=== PATIENT | male | born 1930 | race African-American/Black ===

== ENCOUNTER 2017-01-09 10:17 | Emergency (ER) | payer OTHER ==
[~2017-01-09] VITALS: Ht 182.9 cm; Wt 95.3 kg
[2017-01-09] MEDS ORDERED: DYAZIDE 37.5-21 EACH PO (10:36)
[2017-01-09] MEDS ORDERED: ALLOPURINOL 30300 M2 PO (10:36)
[2017-01-09] MEDS ORDERED: HYDREA 500 MG500 M1 PO (10:37)
[2017-01-09] MEDS ORDERED: FLOMAX0.4 MG PO (10:37)
[2017-01-09] MEDS ORDERED: FINASTERIDE5 MG PO (10:38)
[2017-01-09] MEDS ORDERED: MOBIC15 MG PO (11:29)
[2017-01-09 11:58] VITALS: BP 113/62
== END 2017-01-09 12:08 | disposition home or self-care (01) ==
LOC: ER 10:17
DX: R51 Headache (principal); I10 Essential (primary) hypertension; M10.9 Gout, unspecified; F10.99 Alcohol use, unspecified with unspecified alcohol-induced disorder

== ENCOUNTER 2018-01-18 13:01 | Emergency (ER) | payer OTHER ==
[~2018-01-18] VITALS: Ht 190.5 cm; Wt 89.8 kg
[~2018-01-18 13:01] MED LIST: ALLOPURINOL 30300 M2 PO; DYAZIDE 37.5-21 EACH PO; FINASTERIDE5 MG PO; FLOMAX0.4 MG PO; HYDREA 500 MG500 M1 PO; MOBIC15 MG PO
[2018-01-18] MEDS ORDERED: BUTALB-APAP-CA1 EACH PO (15:02)
[2018-01-18 15:18] VITALS: BP 117/61
== END 2018-01-18 15:20 | disposition home or self-care (01) ==
LOC: ER 13:01
DX: G43.909 Migraine, unspecified, not intractable, without status migrainosus (principal); I10 Essential (primary) hypertension; M10.9 Gout, unspecified; Z86.69 Personal history of other diseases of the nervous system and sense organs

== ENCOUNTER 2018-10-03 20:43 | Emergency (ER) | payer OTHER ==
[~2018-10-03] VITALS: Ht 182.9 cm; Wt 89.8 kg
[~2018-10-03 20:43] MED LIST changes: +AGRYLIN1 MG PO; +ASPIR 8181 MG PO; +BUTALB-APAP-CA1 EACH PO; +VITAMIN B COMP1 EACH PO; +VITAMIN B-12500 MCG PO; +VITAMIN D1000 UNI1 PO; +VITAMIN D3400 UNIT PO
[2018-10-03 22:11] LABS: HEMATOCRIT 23.8 % (42.0-52.0); WBC 9.4 thou/uL (4.0-11.0)
[2018-10-03 22:13] LABS: HEMOGLOBIN 8.2 gm/dL (14.0-18.0); MCH 29.4 pg (26.0-34.0); MCHC 34.3 g/dL (28.0-37.0); MCV 85.9 fL (80.0-100.0); RBC 2.78 mil/uL (4.50-6.00)
[2018-10-03 23:10] VITALS: BP 129/74
== END 2018-10-03 23:11 | disposition home or self-care (01) ==
LOC: ER 20:43
PROVIDERS: Physician Assistant
DX: S80.12XA Contusion of left lower leg, initial encounter (principal); D64.9 Anemia, unspecified; D47.3 Essential (hemorrhagic) thrombocythemia; I10 Essential (primary) hypertension; M10.9 Gout, unspecified; G43.909 Migraine, unspecified, not intractable, without status migrainosus; W00.0XXA Fall on same level due to ice and snow, initial encounter; Y92.89 Other specified places as the place of occurrence of the external cause; Y93.89 Activity, other specified; Y99.8 Other external cause status

== ENCOUNTER → 2018-11-04 | Outpatient (CLI) | payer OTHER ==
[~2018-11-04] MED LIST changes: +HYDREA500 MG PO
[2018-11-04 10:00] VITALS: BP 108/48; BP 111/51
[2018-11-04 12:31] VITALS: BP 111/51; BP 114/49; BP 117/51
--- NOTE | 2018-11-04 15:10 | NUR ---
IN FOR BLOOD TRANSFUSION FOR HGB 6.9. PREMEDS GIVEN AND TRANFUSED 2 UNITS LPPC'S AND TOLERATED WELL WITHOUT INCIDENT. POST VITAL SIGNS GOOD. WITH PATIENT THROUGHOUT TRANSFUSION. DISMISSED AMBULATORY TO HOME IN STABLE CONDITION.
== END ==
LOC: OPONC 00:34
DX: D64.9 Anemia, unspecified (principal); D47.3 Essential (hemorrhagic) thrombocythemia
CPT/HCPCS: 91030

== ENCOUNTER 2019-02-04 13:06 | Inpatient (IN) | payer OTHER ==
[~2019-02-04] VITALS: Ht 182.9 cm; Wt 162.5 kg
[2019-02-04 13:07] VITALS: BP 108/43
[2019-02-04 14:31] LABS: ANION GAP 13 mmol/L (7-16); BUN 71 mg/dL (7-18); CALCIUM 9.7 mg/dL (8.5-10.1); CHLORIDE 110 mmol/L (98-107); CO2 22 mmol/L (21-32); CREATININE 1.2 mg/dL (0.7-1.3); GLUCOSE 120 mg/dL (74-106); POTASSIUM 3.9 mmol/L (3.5-5.1); SODIUM 145 mmol/L (136-145)
[2019-02-04 14:40] LABS: TROPONIN-I <0.06 ng/mL (<0.06)
[2019-02-04 15:00] LABS: MCH 33.7 pg (26.0-34.0); MCHC 32.4 g/dL (28.0-37.0); MCV 104.3 fL (80.0-100.0); RBC 1.63 mil/uL (4.50-6.00); RDW 37.3 % (10.5-14.5); WBC 8.4 thou/uL (4.0-11.0)
[2019-02-04 15:04] LABS: HEMOGLOBIN 5.5 gm/dL (14.0-18.0)
[2019-02-04 15:05] LABS: PLATELET COUNT 1337 thou/uL (150-400)
[2019-02-04 15:36] LABS: ABSOLUTE NEUTROPHILS 7.1 thou/uL (1.4-8.2); ANISOCYTOSIS 3+; MACROCYTES 1+; NUCLEATED RBCS 1 /100WBC
[2019-02-04 15:37] LABS: HYPOCHROMASIA 2+; SCHISTOCYTES FEW
[2019-02-04 15:38] LABS: LARGE PLATELETS OCCASIONAL; POIKILOCYTOSIS 1+
[2019-02-04 15:52] LABS: URINE BILIRUBIN NEGATIVE (Negative); URINE BLOOD NEGATIVE (Negative); URINE CLARITY CLEAR; URINE COLOR YELLOW; URINE GLUCOSE-RANDOM* NEGATIVE (Negative); URINE KETONES NEGATIVE (Negative); URINE LEUKOCYTES-REFLEX TRACE (Negative); URINE NITRITE-REFLEX NEGATIVE (Negative); URINE PROTEIN (DIPSTICK) NEGATIVE (Negative); URINE UROBILINOGEN 0.2 E.U./dl (0.2-1.0)
[2019-02-04 15:56] LABS: ALBUMIN 3.8 g/dL (3.4-5.0); DIRECT BILIRUBIN 0.2 mg/dL (<0.1-0.3); TOTAL BILIRUBIN 0.5 mg/dL (<0.1-1.0); TOTAL PROTEIN 6.3 g/dL (6.4-8.2)
[2019-02-04 16:00] LABS: APTT 23.8 Seconds (24.5-32.8); INR 1.1; PROTIME 11.4 Seconds (9.3-11.4)
--- NOTE | 2019-02-04 16:25 | EKG ---
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 Market Intelligence: rubi : 1930 Requested By: Yessenia Root Order Number: [id number] MD: Anthony Hernandez Measurements Intervals [place] Rate: 82 P: 42 AL: 224 QRS: 46 QRSD: 148 T: 223 QT: 424 QTc: 496 Interpretive Statements Sinus rhythm Atrial premature complex Prolonged AL interval Left bundle branch block No previous ECG available for comparison Electronically Signed On 02-04-2019 16:25:27 CDT by Anthony Hernandez [email or web address] ��������������������������������������������� <ELECTRONICALLY SIGNED> ���������������������������������������� By: Anthony Hernandez MD ��������������������������������������������� 02/04/19 1625 1351 135 Anthony Hernandez MD /OLMAN
[2019-02-04 16:35] VITALS: BP 108/51
[2019-02-04] MEDS ORDERED: FOLIC ACID1 MG PO (16:36)
[2019-02-04 16:44] VITALS: BP 114/49
[2019-02-04 19:20] LABS: % SATURATION 67 % (20-39); IRON 117 ug/dL (65-175); TIBC 175 ug/dL (250-450)
--- NOTE | 2019-02-04 19:36 | NUR ---
PT ARRIVED TO FLOOR AROUND 1730 IN [place] CONDITION.ADMISSION HX AND CAREPLAN COMPLETED.PT SIGNED CONSENT FOR EGD AND BLOOD TRANSFUSION.DINNER GIVEN PER 'S ORDER.REPORT OFF TO HALI RN.
[2019-02-04 19:46] LABS: TSH 2.888 uIU/mL (0.358-3.740)
[2019-02-04 20:16] LABS: FOLIC ACID 60.4 ng/mL (8.6-58.9)
[2019-02-04 20:41] VITALS: BP 107/51
[2019-02-04 21:41] VITALS: BP 114/53; BP 119/54
[2019-02-04 23:59] VITALS: BP 119/54
[2019-02-05] VITALS (9 sets, daily range): BP systolic 108–124; BP diastolic 48–58
[2019-02-05 05:39] LABS: MCH 32.6 pg (26.0-34.0); RBC 1.88 mil/uL (4.50-6.00); WBC 6.9 thou/uL (4.0-11.0)
[2019-02-05 05:44] LABS: MCHC 33.9 g/dL (28.0-37.0); RDW 32.7 % (10.5-14.5)
[2019-02-05 05:50] LABS: HEMOGLOBIN 6.1 gm/dL (14.0-18.0)
[2019-02-05 05:51] LABS: HEMATOCRIT 18.1 % (42.0-52.0); MCV 96.1 fL (80.0-100.0); PLATELET COUNT 979 thou/uL (150-400)
[2019-02-05 05:53] LABS: CALCIUM 8.4 mg/dL (8.5-10.1); CREATININE 1.1 mg/dL (0.7-1.3); POTASSIUM 3.9 mmol/L (3.5-5.1)
--- NOTE | 2019-02-05 07:48 | NUR ---
ASSUMED PT CARE AT 1900. VSS. PT A&OX4. PT CAME IN WITH HGB OF 5.5 TO RECEIVE 2 UNITS OF PRBC; BOTH UNITS GIVEN ON MY SHIFT. H&H RECHECKED THIS AM. HGB WAS 6.1. LILIANA NOTIFIED. THERE WAS NO ACTIVE BLEEDING AT THIS TIME PT HAD NOT HAD A BM YET. NEW ORDERS FOR 2 MORE UNITS GIVEN TO RECHECK HGB 1 HOUR AFTER TRANSFUSION IS OVER. PT HAD A FORMED BLOODY BM AFTER BLOOD ORDERS WERE ENTERED. BLOOD BANK CALLED AROUND 0700 AM THIS AM, THAT THE BLOOD IS READY FOR TRANSFUSION. PT CARE TRANSFERED TO ANOTHER NURSE. PT APPEARS STABLE AT THIS TIME, HE SAYS HE IS FEELING SOMEWHAT BETTER, WILL CONTINUE TO MONITOR PER POC.
[2019-02-05 08:04] LABS: ABSOLUTE NEUTROPHILS 5.3 thou/uL (1.4-8.2)
[2019-02-05 08:06] LABS: ANISOCYTOSIS 3+
[2019-02-05 08:07] LABS: OVALOCYTES FEW
[2019-02-05 08:13] LABS: POLYCHROMASIA OCCASIONAL
[2019-02-05 08:14] LABS: TEARDROPS OCCASIONAL
[2019-02-05 13:43] LABS: HEMATOCRIT 23.8 % (42.0-52.0)
[2019-02-05 13:45] LABS: HEMOGLOBIN 8.4 gm/dL (14.0-18.0)
--- NOTE | 2019-02-05 18:37 | NUR ---
ASSUMED CARE OF PT AT SHIFT CHANGE. ASSESSMENTS CHARTED. MEDS GIVEN PER NOV. PT ALERT AND ORIENTED, VSS, HGB, 2 UNITS BLOOD TRANSFUSED PER ORDERS. PT HAD EGD PROCUDURE TODAY-- REFER TO PROCEDURE NOTE. FAMILY AT BEDSIDE THROUGHOUT SHIFT. PT UP WITH ROBERTA FRANCO. PROTONIX GTT CONTINUES. PT CALLS APPROPRIATELY WITH NEEDS. DENIES CONCERNS AT THIS TIME. CONTINUING TO MONITOR.
[2019-02-06 04:00] VITALS: BP 122/51
--- NOTE | 2019-02-06 04:33 | NUR ---
ASSUMED PT CARE AT 1900. VSS. PT A&0 TO SELF, TIME, AND SITUATION. PT SLEPT FOR MOST OF THE NIGHT, PROTONIX GTT STILL GOING WELL NS. NO COMPLAINTS OF PAIN OR DISTRESS, PT STABLE, WILL CONTINUE TO MONITOR PER POC.
[2019-02-06 05:17] LABS: HEMOGLOBIN 7.5 gm/dL (14.0-18.0); MCH 32.2 pg (26.0-34.0); MCHC 34.2 g/dL (28.0-37.0); MCV 94.2 fL (80.0-100.0); RBC 2.33 mil/uL (4.50-6.00); WBC 6.6 thou/uL (4.0-11.0)
[2019-02-06 05:23] LABS: CREATININE 1.1 mg/dL (0.7-1.3); POTASSIUM 3.6 mmol/L (3.5-5.1)
--- NOTE | 2019-02-06 07:25 | P ---
[facility] [address] [place] [address] PROCEDURE REPORT Name: SHAHNAZ FERRARO Addi Room #: 212-P [facility] IN M.R.#: [id number] Admission: 02/04/19 ������������������ Attend Phys: Yuriy Celaya MD Discharge: ������������������ Date of : 32 Report #: [id number] THIS REPORT FOR: //name// CC: Yuriy Tee MD DATE OF SERVICE: 02/05/2019 PROCEDURE: Diagnostic EGD. The patient of Dr. Radha Tee and Dr. Yuriy Celaya. INDICATION FOR PROCEDURE: This patient has had melena. He had a hemoglobin drop to approximately 5.5 and presented to the ER yesterday for evaluation. He received 2 units of packed cells overnight and this morning, his hemoglobin was only 6.1. He has received 2 more units of packed cells during the day today and I do not have the followup hemoglobin available to me yet. His vital signs are stable and he has had no further melena for many hours. His BUN has dropped from 71 to 53. His appetite has been poor. I suspect he has been losing weight. His thinks that he is depressed. Informed consent for this procedure was obtained prior to the administration of any medication. The risks of the procedure, which include but are not limited to the following, bleeding, perforation, infection, complications of sedation and the possibility I could miss something were explained to the patient and he has indicated his consent to proceed with the endoscopy. Anesthesia kindly provided deep sedation with propofol for this patient. I believe they also gave ketamine. DESCRIPTION OF PROCEDURE: The Olympus upper videoscope was introduced through the upper esophageal sphincter and advanced to the stomach and retroflex view was obtained. I could see an adherent clot to what appeared to be a 3 cm long Rocio-Pa tear that was nonbleeding. The clot is black in color and stuck fast. There is a healing ulceration linearly extending from the blood clot up to the Z-line. This is about 3 cm long. I did not try any longer to dislodge this clot. It appears to be firmly in place at this time and doing its job. So the scope was advanced all the way down to the third portion of the duodenum and findings were noted on withdrawal of the scope. The duodenal mucosa appeared normal throughout its entirety. Pylorus: Normal mucosa. Antrum: Normal mucosa. Body: Normal mucosa. On retroflex view of the cardia and fundus, there is a 2-3 cm submucosal mass across from the Rocio-Pa tear in the proximal stomach. It is irregular in appearance, but will require further workup with endoscopic ultrasound and possibly CT scans. As it is submucosal in [address] [address] PROCEDURE REPORT Name: SHAHNAZ FERRARO Room #: 212-P [facility] IN ..#: [id number] Admission: 02/04/19 ������������������ Attend Phys: Yuriy Celaya MD Discharge: ������������������ Date of : 32 Report #: [id number] nature, mucosa biopsies would not be diagnostic for this lesion. The scope was withdrawn into the esophagus. The Z-line is appropriately located at the top of the gastric folds and the Rocio-Pa tear extends up to the Z-line. The esophageal mucosa itself appears normal. The scope was withdrawn. The patient went to the recovery area in stable condition. He tolerated the procedure well. IMPRESSION: 1. A 3 cm long Rocio-Pa tear with adherent clot, nonbleeding white based. 2. 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 The duodenum appeared normal as did the distal stomach. My recommendations were to arrange for the patient to continue on Protonix 40 mg and I would make sure he gets at least 40 mg a day, if not b.i.d. for a while. He will need to be scheduled for an outpatient endoscopic ultrasound either at or at [facility] or [facility] to evaluate this proximal submucosal gastric lesion. I do not believe that he has ever had a colonoscopy done and that should be done as an outpatient for screening purposes if the patient is agreeable, but I do not think the melena, probably arose from the Rocio-Pa tear. Thank you very much for allowing me to participate in his care, Dr. Celaya and Dr. Tee. ��������������������������������������������� <ELECTRONICALLY SIGNED> ���������������������������������������� By: Dana Trinidad DO ��������������������������������������������� 02/06/19 0725 1345 0432 Dana Trinidad DO /nt
--- NOTE | 2019-02-06 09:26 | EKG ---
[address] [place] [place] [address] ELECTROCARDIOGRAM REPORT Name: SHAHNAZ FERRARO Room #: 212-P ADM IN M.R.#: [id number] ������������������ Admission: 02/04/19 ������������������ Attend Phys: Yuriy Celaya MD Discharge: ������������������ Date of : 32 Report #: [id number] ����������������������������������������������������������������� [id number] THIS REPORT FOR: //name// [facility] Test Date: 2019-02-05 Test Time: 12:55:57 Pat Name: SHAHNAZ FERRARO Department: Room: 212 P Gender: M Disability Services Coordinator: LARRY : 1930 Requested By: Dana Trinidad Order Number: [id number] MD: Renan Sutton Measurements Intervals [place] Rate: 66 P: SD: QRS: 12 QRSD: 154 T: 161 QT: 435 QTc: 456 Interpretive Statements Sinus rhythm with atrial premature complexes Left bundle branch block Compared to ECG 02/04/2019 13:51:52 No significant change was found Electronically Signed On 02-06-2019 9:26:37 CDT by Renan Sutton [email or web address] ��������������������������������������������� <ELECTRONICALLY SIGNED> ���������������������������������������� By: Renan Sutton MD, [facility] ��������������������������������������������� 02/06/19 0926 1255 1255 Renan Sutton MD, FAC /EPI
[2019-02-06 09:54] VITALS: BP 122/51
--- NOTE | 2019-02-06 14:56 | NUR ---
Case opened to follow for dc planning. Pt down for testing at this time. Gear Machine Operator visited with his and gson at bedside. They indicate that the pt is normally indep with gait and adl's. He drives; she does not. No hh or dme history. He was using his wifes cane the last few days. Pt being treated for a GI bleed. Cm role introduced. Will ask for therapy evals due to weakness and change in status.
--- NOTE | 2019-02-06 15:38 | NUR ---
ASSUMED CARE OF PT AT SHIFT CHANGE. ASSESSMENTS CHARTED. MEDS GIVEN PER NOV. PT ALERT AND ORIENTED, FORGETFUL AT TIMES, VSS, DENIES PAIN, O2 SATS WNL ON ROOM AIR, NO S/SX OF CARD OR RESP DISTRESS NOTED. FAMILY AT BEDSIDE THROUGHOUT SHIFT. PT CALLS APPROPRIATELY WITH NEEDS, UP SBA WITH WALKER, TOLERATES WELL. PT/OT EVAL AND TREATMENT ORDERS IN PER DR. DAO. PROTONIX GTT DC'D PER GI. PT DENIES CONCERNS AT THIS TIME. WILL CONTINUE TO MONITOR AND FOLLOW POC.
[2019-02-06 20:02] VITALS: BP 121/51
[2019-02-07 04:57] VITALS: BP 120/49
[2019-02-07 05:29] LABS: HEMATOCRIT 23.8 % (42.0-52.0); HEMOGLOBIN 8.2 gm/dL (14.0-18.0); MCH 32.6 pg (26.0-34.0); MCHC 34.3 g/dL (28.0-37.0); MCV 95.1 fL (80.0-100.0); RBC 2.51 mil/uL (4.50-6.00); RDW 26.3 % (10.5-14.5); WBC 9.4 thou/uL (4.0-11.0)
[2019-02-07 05:39] LABS: POTASSIUM 3.9 mmol/L (3.5-5.1)
--- NOTE | 2019-02-07 05:39 | NUR ---
ASSUMED PT CARE AT 1900 WITH NO SIGN OF DISTRESS NOTED. FAMILY AT BEDSIDE. NO PT IS ALERT AND ORIENTED. ASSESSMENT CHARTED AND COMPLETED. RN TO MONITOR H&H. SCHEDULED MEDS ADMINISTERED TO PT. NO BLEEDING NOTITICED. PT IS STABLE. VITAL SIGNS STABLE. CONTINUE NURSING POC. DENIES ANY NEEDS AT THIS TIME.
[2019-02-07 08:07] VITALS: BP 120/62
--- NOTE | 2019-02-07 11:02 | NUR ---
ASSUMED CARE AT SHIFT CHANGE, ALERT AND ORIENTED X4. DENIES ANY CP OR DISCOMFORT. ASSESSMENT DOCUMENTED.AND WILL CONTINUE POC.
[2019-02-07 11:27] VITALS: BP 140/56
--- NOTE | 2019-02-07 12:19 | NUR ---
PT ARRIVED TO ROOM 421 FROM CCU IN STABLE CONDITION VIA WHEELCHAIR AT 1100. VSS. EVANS AT BEDSIDE. ASSESSMENT COMPLETED. A&O,X4. DENIES PAIN. CONCERNED ABOUT RESTARTING HOME MEDICATION. PHYSICIAN NOTIFIED. WILL CONTINUE TO MONITOR.
[2019-02-07 19:30] VITALS: BP 122/57
[2019-02-08 03:30] VITALS: BP 122/57; BP 128/59
[2019-02-08 05:09] LABS: MCV 95.3 fL (80.0-100.0); WBC 7.8 thou/uL (4.0-11.0)
[2019-02-08 05:11] LABS: HEMATOCRIT 23.3 % (42.0-52.0); MCH 32.6 pg (26.0-34.0); MCHC 34.2 g/dL (28.0-37.0); RBC 2.45 mil/uL (4.50-6.00)
--- NOTE | 2019-02-08 05:28 | NUR ---
LAB CALLED A CRITICAL PLATELET COUNT OF 923 AT 0513. THIS NURSE NOTIFIED RUEL REYES AND RECEIVED NO ORDERS. OF 02/07 PLT COUNT WAS 1059. WILL MONITOR.
[2019-02-08 09:15] VITALS: BP 123/57
[2019-02-08] MEDS ORDERED: PROTONIX40 M1 PO (10:19)
[2019-02-08 11:24] VITALS: BP 123/57
--- NOTE | 2019-02-08 13:32 | NUR ---
ASSUMED CARE OF PT AT 0700. ASSESSMENT CHARTED. A&O,X4. DENIES PAIN. ROOM AIR. GOOD URINE OUTPUT VIA URINAL. GRANDSON AND FAMILY AT BEDSIDE. PT ABLE TO WALK AROUND IN HALLWAYS. STEADY GAIT, NO WEAKNESS NOTED. NEW DISCHARGE ORDERS. IV X2 REMOVED, NO ACTIVE BLEEDING. PT DRESSED IN PERSONAL CLOTHING. BELONGINGS COLLECTED AND SENT WITH PT. D/C INFORMATION AND NEW SCRIPTS GIVEN TO PT AND FAMILY AT BEDSIDE. STATE NO QUESTIONS OR CONCERNS. PT LEFT VIA WHEELCHAIR ESCORT WITH FAMILY AND BELONGINGS AT 12:18.
== END 2019-02-08 12:21 | disposition home or self-care (01) | DRG 369 ==
LOC: ER 13:06 → 2N 15:41 → EROBS 15:41 → 2N 17:19 → 4E 02-07 11:34
PROVIDERS: Emergency Medicine; Hospitalist; Internal Medicine; Internal Medicine Gastroenterology; Nurse Practitioner; ADMIT Hospitalist
PROC: 30233N1 Transfusion of Nonautologous Red Blood Cells into Peripheral Vein, Percutaneous Approach (ICD-10-PCS; principal; 2019-02-04)
PROC: 0DJ08ZZ Inspection of Upper Intestinal Tract, Via Natural or Artificial Opening Endoscopic (ICD-10-PCS; 2019-02-05)
DX: K22.6 Gastro-esophageal laceration-hemorrhage syndrome (principal); D62 Acute posthemorrhagic anemia; I10 Essential (primary) hypertension; M10.9 Gout, unspecified; G43.909 Migraine, unspecified, not intractable, without status migrainosus; K59.09 Other constipation; E86.0 Dehydration; D47.3 Essential (hemorrhagic) thrombocythemia; M19.90 Unspecified osteoarthritis, unspecified site; K31.9 Disease of stomach and duodenum, unspecified; N40.0 Benign prostatic hyperplasia without lower urinary tract symptoms; Z79.899 Other long term (current) drug therapy; Z79.1 Long term (current) use of non-steroidal anti-inflammatories (NSAID)
CPT/HCPCS: 10081; 10183; 62110; 62900; 70005

== ENCOUNTER → 2019-06-05 | Outpatient (CLI) | payer OTHER ==
[~2019-06-05] VITALS: Ht 182.9 cm; Wt 88.5 kg
[~2019-06-05] MED LIST changes: +FOLIC ACID1 MG PO; +PROTONIX40 M1 PO
--- NOTE | 2019-06-08 16:06 | PATH ---
[facility] [address] [place] [address] PATHOLOGY RPT PROCEDURE Name: TARA LANIER Addi Room #: REG [facility].#: [id number] Admission: 06/05/19 Date of : 32 Discharge: Report #: [id number] Path Case #: [id number] [facility] Accession Number: [id number] . 01 Material submitted: . cecum - POLYP AT CECUM . 01 Clinical history: . Pre-OP DX: Recheck esophageal tear, screening, Hx of anemia Post-OP DX: Colon polyp . 02 Diagnosis: Polyp, cecum, endoscopic biopsy: - Tubular adenoma. - Negative for high grade dysplasia. . (IUV:mml; 06/08/2019) QLM 06/08/2019 1233 Local . 02 Electronically signed: . Tiffany Laguna MD, Pathologist NPI- [id number] . 01 Gross description: . Received in formalin labeled "Tara Lanier, polyp at cecum," are multiple segments of rosenbaum soft tissue measuring 1.5 x 0.3 x 0.1 cm in aggregate dimensions. The specimen is filtered and entirely submitted in cassette A1. (TSD; 06/05/2019) TOB/TOB 06/05/2019 1622 Local . 02 Pathologist provided ICD-10: D12.0 . 02 CPT . 273293 Specimen Comment: A courtesy copy of this report has been sent to Specimen Comment: [phone], . Specimen Comment: Report sent to / DR MARSHALL Performed at: [address], [place] [id number] MD Shaq López MD Phone: [phone] Performed at: [address] [id number] MD Tiffany Laguna MD Phone: [phone]
--- NOTE | 2019-06-10 10:34 | P ---
[facility] [address] [place] [address] PROCEDURE REPORT Name: SHAHNAZ FERRARO Addi Room #: REG [facility]#: [id number] Admission: 06/05/19 Attend Phys: Eric Nevarez Discharge: Date of : 32 Report #: [id number] THIS REPORT FOR: //name// CC: Eric Tee MD DATE OF SERVICE: 06/05/2019 PROCEDURE PERFORMED: Upper endoscopy. HISTORY OF PRESENT ILLNESS: The patient is an 88-year-old male who was seen for followup in the office on 04/07/2019. He had an upper GI bleed in January of this year and was hospitalized with a hemoglobin of 5.5. He underwent an upper endoscopy by my partner on 02/05/2019 which showed a large Rocio-Pa tear in the distal esophagus with adherent clot. Also, possible submucosal mass in the proximal stomach. A CT scan of the abdomen was performed 02/06/2019, which showed no gastric mass noted or lymphadenopathy, redundant colon was noted. The patient denies any further bleeding. He is on PPI therapy. He denies any dysphagia. Plan is for EGD and colonoscopy today. DESCRIPTION OF PROCEDURE: The risks and benefits of the procedure were explained to the patient, those risks including but not limited to bleeding, perforation, the risk of sedation. He understood these risks and gave informed consent. Sedation was given using propofol per anesthesia. Next, using a standard Olympus upper endoscope, the scope was placed in the patient's mouth and advanced under direct vision through the esophagus, stomach and into the second portion of the duodenum. The larynx was normal in appearance. The esophagus was normal throughout. The GE junction was normal. No evidence of esophagitis. Upon entering the stomach, there appears to be a large hiatal hernia. Also, in the gastric fundus, there is a submucosal mass. This was approximately 2 cm in diameter. Overall, the gastric mucosa was otherwise normal. The pylorus was normal and patent. The duodenal bulb, first and second portion were all normal. The scope was then withdrawn and the procedure terminated. The patient tolerated the procedure well. IMPRESSION: 1. Appears to have a large hiatal hernia. 2. Submucosal mass in the gastric fundus. 3. Previous Rocio-Pa tear is well healed. No evidence of esophagitis or inflammation. No evidence of bleeding. RECOMMENDATIONS: 1. Continue PPI therapy long-term. 2. We will proceed with colonoscopy, next today. 3. We will discuss possible endoscopic ultrasound with the patient for further [address] [address] PROCEDURE REPORT Name: SHAHNAZ FERRARO Room #: REG Shonda Perez#: [id number] Admission: 06/05/19 Attend Phys: Eric Nevarez Discharge: Date of : 32 Report #: [id number] evaluation of submucosal mass in the future. Thank you for allowing me to participate in his care. <ELECTRONICALLY SIGNED> By: Eric Baeza MD 06/10/19 1034 0952 99 Eric Baeza MD /nt
--- NOTE | 2019-06-10 10:34 | P ---
[facility] [address] [place] [address] PROCEDURE REPORT Name: SHAHNAZ FERRARO Room #: REG [facility]#: [id number] Admission: 06/05/19 Attend Phys: Eric Nevarez Discharge: Date of : 32 Report #: [id number] THIS REPORT FOR: //name// CC: Eric Tee MD PROCEDURE PERFORMED: Colonoscopy with biopsies. HISTORY OF PRESENT ILLNESS: The patient is an 88-year-old male with previous history of upper GI bleed from Rocio-Pa tear in January of this year. He has been on PPI therapy since. Denies any further bleeding. Upper endoscopy was just performed today, which shows no evidence of esophagitis or inflammation. Previous Rocio-Pa tear was well healed. Plan is also for colonoscopy today. It has been many years since his last colonoscopy. No family history of colon cancer. DESCRIPTION OF PROCEDURE: The risks and benefits of the procedure were explained to the patient, those risks including but not limited to bleeding, perforation and the risk of sedation. He understood these risks and gave informed consent. Sedation was given using propofol per anesthesia. Next, a digital rectal exam was initially performed, which was normal other than a large smooth prostate. Next, using a standard Olympus colonoscope, the scope was placed in the patient's anus and advanced under direct vision to the cecum. The overall prep was good. In the cecum, there was a 6 mm sessile polyp. This was removed with cold forceps. The ileocecal valve was normal in appearance. Ascending, transverse, descending and sigmoid colon were all normal. The rectal mucosa was normal. On retroflexion, small nonbleeding internal hemorrhoids were noted. The scope was then withdrawn and the procedure terminated. The patient tolerated the procedure well. IMPRESSION: 1. Small cecal polyp. 2. Small internal hemorrhoids. 3. Otherwise, normal colonoscopy. RECOMMENDATIONS: 1. Await biopsy results. 2. No signs of bleeding today. We would continue to monitor hemoglobin and also continue long-term PPI therapy. Thank you for allowing me to participate in his care. <ELECTRONICALLY SIGNED> By: Eric Baeza MD 06/10/19 1034 1018 27 Eric Baeza MD /nt
== END | disposition home or self-care (01) ==
LOC: GI 05-12 09:23
DX: Z12.11 Encounter for screening for malignant neoplasm of colon (principal); D12.0 Benign neoplasm of cecum; K64.8 Other hemorrhoids; K44.9 Diaphragmatic hernia without obstruction or gangrene; K21.9 Gastro-esophageal reflux disease without esophagitis; Z98.890 Other specified postprocedural states; Z79.899 Other long term (current) drug therapy; Z79.82 Long term (current) use of aspirin
CPT/HCPCS: 62110; 62900

== ENCOUNTER 2021-03-13 12:52 | Emergency (ER) | payer OTHER ==
[~2021-03-13] VITALS: Ht 185.4 cm; Wt 81.7 kg
[2021-03-13 13:44] LABS: ABSOLUTE NEUTROPHILS 4.4 thou/uL (1.4-8.2); HEMATOCRIT 24.2 % (42.0-52.0); HEMOGLOBIN 8.4 gm/dL (14.0-18.0); LYMPHOCYTES 9.1 % (24.0-44.0); MCH 37.9 pg (26.0-34.0); MCHC 34.5 g/dL (28.0-37.0); MCV 109.9 fL (80.0-100.0); MONOCYTES 3.1 % (1.0-8.0); PLATELET COUNT 418 thou/uL (150-400); POLYS 87.4 % (36.0-66.0); RBC 2.21 mil/uL (4.50-6.00); RDW 17.2 % (10.5-14.5)
[2021-03-13 13:54] LABS: CALCIUM 8.4 mg/dL (8.5-10.1); CREATININE 1.2 mg/dL (0.7-1.3); POTASSIUM 3.9 mmol/L (3.5-5.1)
[2021-03-13 14:00] LABS: ALBUMIN 3.3 g/dL (3.4-5.0); TOTAL BILIRUBIN 0.5 mg/dL (0.2-1.0); TOTAL PROTEIN 6.9 g/dL (6.4-8.2)
[2021-03-13 14:54] LABS: URINE BILIRUBIN NEGATIVE (Negative); URINE BLOOD 2+ (Negative); URINE CLARITY CLEAR; URINE COLOR YELLOW; URINE GLUCOSE-RANDOM* NEGATIVE (Negative); URINE KETONES NEGATIVE (Negative); URINE LEUKOCYTES-REFLEX NEGATIVE (Negative); URINE NITRITE-REFLEX NEGATIVE (Negative); URINE PROTEIN (DIPSTICK) 2+ (Negative); URINE SPECIFIC GRAVITY >= 1.030 (1.005-1.035)
[2021-03-13 15:00] LABS: BASOPHILS 0.4 % (0.0-2.0)
[2021-03-13 15:11] LABS: AMORPHOUS URATES Moderate /LPF (None Seen)
[2021-03-13 15:12] LABS: SQUAMOUS 0-3 Few /LPF (0-3); URINE RBC >20 Many /HPF (NONE SEEN); URINE WBC-REFLEX 0-5 Rare /HPF (0-5)
[2021-03-13 15:23] LABS: BACTERIA-REFLEX None Seen /HPF (None Seen); CRYSTALS None Seen /LPF (None Seen)
[2021-03-13] MEDS ORDERED: AZITHROMYCIN500 MG PO (15:31)
[2021-03-13] MEDS ORDERED: PREDNISONE 20 M20 MG PO (15:31)
[2021-03-13 16:41] VITALS: BP 124/75
== END 2021-03-13 16:41 | disposition home or self-care (01) ==
LOC: ER 12:52
PROVIDERS: Nurse Practitioner
DX: U07.1 COVID-19 (principal); J12.89 Other viral pneumonia; R50.9 Fever, unspecified; K21.9 Gastro-esophageal reflux disease without esophagitis; G43.909 Migraine, unspecified, not intractable, without status migrainosus; Z79.82 Long term (current) use of aspirin; Z79.899 Other long term (current) drug therapy

== ENCOUNTER 2021-03-23 23:37 | Emergency (ER) | payer OTHER ==
[~2021-03-23] VITALS: Ht 182.9 cm; Wt 88.5 kg
[~2021-03-23 23:37] MED LIST changes: +AZITHROMYCIN500 MG PO; +PREDNISONE 20 M20 MG PO
[2021-03-24 00:34] LABS: ABSOLUTE NEUTROPHILS 4.5 thou/uL (1.4-8.2); BASOPHILS 1.2 % (0.0-2.0); EOSINOPHILS 0.9 % (0.0-3.0); HEMATOCRIT 24.6 % (42.0-52.0); LYMPHOCYTES 16.9 % (24.0-44.0); MCH 36.1 pg (26.0-34.0); MCHC 32.4 g/dL (28.0-37.0); MCV 111.4 fL (80.0-100.0); MONOCYTES 6.5 % (1.0-8.0); PLATELET COUNT 746 thou/uL (150-400); POLYS 74.5 % (36.0-66.0); RBC 2.21 mil/uL (4.50-6.00); RDW 17.1 % (10.5-14.5); WBC 6.1 thou/uL (4.0-11.0)
[2021-03-24 00:38] LABS: ANION GAP 12 mmol/L (7-16); BUN 18 mg/dL (7-18); CALCIUM 8.6 mg/dL (8.5-10.1); CHLORIDE 105 mmol/L (98-107); CO2 24 mmol/L (21-32); CREATININE 1.1 mg/dL (0.7-1.3); GLUCOSE 101 mg/dL (74-106); POTASSIUM 4.5 mmol/L (3.5-5.1); SODIUM 141 mmol/L (136-145)
[2021-03-24 00:48] LABS: ALBUMIN 2.9 g/dL (3.4-5.0); SGOT 16 U/L (15-37); SGPT 15 U/L (16-63); TOTAL BILIRUBIN 0.5 mg/dL (0.2-1.0); TOTAL PROTEIN 6.4 g/dL (6.4-8.2); TROPONIN-I <0.06 ng/mL (<0.06)
[2021-03-24] MEDS ORDERED: ANAGRELIDE0.5 MG/11 PO (00:58)
[2021-03-24 02:09] LABS: URINE BILIRUBIN NEGATIVE (Negative); URINE BLOOD NEGATIVE (Negative); URINE CLARITY CLEAR; URINE COLOR YELLOW; URINE GLUCOSE-RANDOM* NEGATIVE (Negative); URINE KETONES NEGATIVE (Negative); URINE LEUKOCYTES-REFLEX NEGATIVE (Negative); URINE NITRITE-REFLEX NEGATIVE (Negative); URINE PROTEIN (DIPSTICK) NEGATIVE (Negative); URINE SPECIFIC GRAVITY <= 1.005 (1.005-1.035); URINE UROBILINOGEN 0.2 E.U./dl (0.2-1.0)
[2021-03-24 04:52] VITALS: BP 104/54
--- NOTE | 2021-03-24 11:41 | EKG ---
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 : 1930 Requested By: Mima Leal Order Number: [id number] MD: Roel Lugo Measurements Intervals [place] Rate: 80 P: [place]: QRS: 3 QRSD: 145 T: 177 QT: 405 QTc: 468 Interpretive Statements Atrial fibrillation Left bundle branch block Compared to ECG 02/05/2019 12:55:57 Sinus rhythm no longer present Atrial premature complex(es) no longer present Electronically Signed On 03-24-2021 11:41:15 CDT by Roel Lugo [email or web address] <ELECTRONICALLY SIGNED> By: Roel Lugo MD, [facility] 03/24/21 1141 0019 0019 Roel Lugo MD, FACC /EPI
== END 2021-03-24 04:53 | disposition home or self-care (01) ==
LOC: ER 23:37
PROVIDERS: Emergency Medicine
DX: U07.1 COVID-19 (principal); R53.1 Weakness; Z79.899 Other long term (current) drug therapy; Z79.82 Long term (current) use of aspirin; K21.9 Gastro-esophageal reflux disease without esophagitis

== ENCOUNTER → 2021-06-07 | Outpatient (CLI) | payer OTHER ==
[~2021-06-07] MED LIST changes: +ANAGRELIDE0.5 MG/11 PO; +DOK100 MG PO; +FEOSOL325 M1 PO; +VITAMIN C500 M1 PO; +VITAMIN D325 MC2 PO; +ZINC-1566 MG PO
[2021-06-07 10:35] VITALS: BP 126/60
[2021-06-07 11:23] VITALS: BP 126/60
[2021-06-07 12:53] VITALS: BP 117/50; BP 118/62
--- NOTE | 2021-06-07 15:55 | NUR ---
HERE FOR T&C AND ONE UNIT LPPC FOR HGB 6.8. LAST BLOOD TRANSFUSION WAS IN 2019. PT DOES NOT RECALL ANY PRIOR REACTION TO BLOOD. LONG WAIT BETWEEN T&C DRAW AND BLOOD BEING READY BUT PT RESTED COMFORTABLY IN A RECLINER WHILE WAITING. DAUGHTER BROUGHT PT LUNCH THEN RETURNED TO PICK HIM UP AT THE END OF THE DAY. REVIEWED POST TRANSFUSION INSTRUCTION SHEET WITH HER. PT UP TO VOID X 2 WHILE HERE. STATES FEELING A LITTLE BETTER POST TRANSFUSION. DISMISSED IN STABLE CONDITION.
== END ==
LOC: OPONC 09:19 → EDSTATUS 09:27 → OPONC 14:19
PROVIDERS: ATTEND Internal Medicine Hematology & Oncology
DX: D64.9 Anemia, unspecified (principal)
CPT/HCPCS: 91030

== ENCOUNTER 2021-06-14 12:46 | Inpatient (IN) | payer OTHER ==
[~2021-06-14] VITALS: Ht 182.9 cm; Wt 89.8 kg
[2021-06-14 13:13] VITALS: BP 122/58
[2021-06-14 14:16] LABS: HEMOGLOBIN 6.7 gm/dL (14.0-18.0)
[2021-06-14 14:18] LABS: HEMATOCRIT 20.4 % (42.0-52.0); MCH 32.6 pg (26.0-34.0); MCHC 32.6 g/dL (28.0-37.0); PLATELET COUNT 469 thou/uL (150-400); RBC 2.04 mil/uL (4.50-6.00); RDW 33.4 % (10.5-14.5); WBC 8.7 thou/uL (4.0-11.0)
[2021-06-14 14:33] LABS: CALCIUM 8.5 mg/dL (8.5-10.1); CREATININE 1.1 mg/dL (0.7-1.3); POTASSIUM 4.3 mmol/L (3.5-5.1)
--- NOTE | 2021-06-14 15:17 | EKG ---
[address] [address] ELECTROCARDIOGRAM REPORT Name: SHAHNAZ FERRARO Room #: 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
[2021-06-14 16:36] LABS: ALBUMIN 3.2 g/dL (3.4-5.0); DIRECT BILIRUBIN 0.2 mg/dL (<0.1-0.2); TOTAL BILIRUBIN 0.7 mg/dL (0.2-1.0); TOTAL PROTEIN 6.4 g/dL (6.4-8.2)
[2021-06-14 17:02] LABS: ABSOLUTE NEUTROPHILS 7.5 thou/uL (1.4-8.2)
[2021-06-14 17:05] LABS: ANISOCYTOSIS 3+; HYPOCHROMASIA 2+; POIKILOCYTOSIS 3+
[2021-06-14 18:37] VITALS: BP 121/62; BP 121/66; BP 123/59
[2021-06-14 18:52] VITALS: BP 125/74
[2021-06-14 19:19] VITALS: BP 123/74
[2021-06-14 21:00] VITALS: BP 145/76
--- NOTE | 2021-06-15 01:57 | NUR ---
PT'S TRANSFUSION STARTED IN ED COMPLETED AT 2200 VSS NO S/S OF REACTION NOTED VITALS CHARTED IN FLOWSHEET UNABLE TO DOCUMENT ON ED TRANSFUSION FLOWSHEET.
[2021-06-15 04:09] VITALS: BP 138/68
--- NOTE | 2021-06-15 04:35 | NUR ---
ADMIT PT ADMITTED TO ROOM 359 FROM ED, BEING ADMITTED WITH SYMPTOMATIC ANEMIA, CHF AND NEW ONSET AFIB. CONSULTS TO GI DR.MARTIN AGUILAR, AND CONSULT CALLED TO WITH CARDIOLOGY. PT HAS A ERNST A PIV THAT IS SALINE LOCKED. REFUSED SCD'S. ORIENTED TO ROOM CALL LIGHT SYSTEM AND POC. UP WITH 1 AND SBA FOR SAFETY. BED ALARM AND ALL FALL PRECAUTIONS IN PLACE.
[2021-06-15 06:03] LABS: HEMOGLOBIN 7.9 gm/dL (14.0-18.0); MCH 32.3 pg (26.0-34.0); MCHC 33.1 g/dL (28.0-37.0); MCV 97.5 fL (80.0-100.0); RBC 2.46 mil/uL (4.50-6.00); RDW 32.3 % (10.5-14.5); WBC 9.6 thou/uL (4.0-11.0)
[2021-06-15 06:07] LABS: CALCIUM 8.4 mg/dL (8.5-10.1)
[2021-06-15 07:14] VITALS: BP 129/51
[2021-06-15 11:05] VITALS: BP 122/69
--- NOTE | 2021-06-15 11:05 | 2DMMODE ---
[facility] [place] [address] 2 D/M-MODE ECHOCARDIOGRAM Name: SHAHNAZ FERRARO Room #: 359-P ADM IN M.R.#: [id number] Admission: 06/14/21 Attend Phys: Mejia Sanchez MD Discharge: Date of : 34 Report #: [id number] THIS REPORT FOR: cc: Radha Tee MD, Keninde A. MD Santiago, Patrick MD [facility] ~ ADDENDUM APPROVED REPORT Study performed: 06/15/2021 10:07:57 EXAM: Comprehensive 2D, Doppler, and color-flow Echocardiogram Patient Location: Bedside Room #: 359 Status: routine BSA: 2.15 HR: 80 bpm BP: 129/51 mmHg Rhythm: Atrial Fibrillation/LBBB Other Information Study Quality: Fair/off axis images. Not all measurements taken. Technically limited study due to flat on back, rib interference, body habitus. Indications Short of breath, Afib, CHF. Hx: COVID (03/2021). 2D Dimensions IVSd: 10.64 (7-11mm) LVOT Diam: 23.67 (18-24mm) LVDd: 57.23 mm PWd: 11.30 (7-11mm) Ascending Ao: 38.47 (22-36mm) LVDs: 43.98 (25-40mm) Left Atrium: 36.54 (27-40mm) Aortic Root: 43.61 mm Aortic Valve AoV Peak Sid.: 1.14 m/s AO Peak Gr.: 5.23 mmHg LVOT Max P.67 mmHg LVOT Max V: 0.96 m/s DAPHNE Vmax: 3.68 cm2 Mitral Valve [facility] [address] [place] [address] 2 D/M-MODE ECHOCARDIOGRAM Name: SHAHNAZ FERRARO Room #: 359[facility] IN [facility].#: [id number] Admission: 06/14/21 Attend Phys: Mejia Sanchez MD Discharge: Date of : 34 Report #: [id number] E/A Ratio: 1.8 MV Decel. Time: 205.67 ms MV E Max Sid.: 1.08 m/s MV A Sid.: 0.59 m/s MV PHT: 59.65 ms Pulmonary Valve PV Peak Sid.: 1.01 m/s PV Peak Gr.: 4.12 mmHg Tricuspid Valve TR Peak Sid.: 3.41 m/s TR Peak Gr.: 47.00 mmHg Left Ventricle The left ventricle is normal size. Paradoxical septal motion consistent with conduction abnormality. There is normal left ventricular wall thickness. Left ventricular systolic function is mildly decreased. LVEF is 45-50%. This study is not technically sufficient to allow evaluation of the LV diastolic function due to arrhythmia Right Ventricle The right ventricle is normal size. The right ventricular systolic function is normal. Atria Left atrium is dilated. The right atrium size is normal. Aortic Valve The Aortic valve is moderately sclerotic. Mild aortic regurgitation. There is no aortic valvular stenosis. Mitral Valve Mitral valve leaflets are mildly thickened and calcified. Moderate to severe mitral regurgitation No evidence of mitral valve stenosis. Tricuspid Valve The tricuspid valve is normal in structure. Mild tricuspid regurgitation. Estimated PAP is 47mmHg plus the right atrial pressure. Pulmonic Valve Pulmonic valve is poorly visualized. Trace pulmonic regurgitation. [facility] [address] [place] [address] 2 D/M-MODE ECHOCARDIOGRAM Name: SHAHNAZ FERRARO Room #: 359-P ADM IN M.R.#: [id number] Admission: 06/14/21 Attend Phys: Mejia Sanchez MD Discharge: Date of : 34 Report #: [id number] Great Vessels The aortic root is normal in size. IVC is poorly visualized. Pericardium There is no pericardial effusion. <Conclusion> Normal left ventricle size/wall thickness Mild global hypokinesis ejection fraction 45-50%, mild inferior wall hypokinesis Normal right ventricular size/function Left atrium mildly dilated Moderate aortic valve sclerosis without stenosis Mild mitral annular calcification Moderate to severe mitral valve insufficiency Mild tricuspid valve insufficiency Pulmonary artery systolic pressure estimated at 47 mmHg No pericardial effusion Normal aortic root size. <ELECTRONICALLY SIGNED> By: Roel Lugo MD, [facility] 06/15/21 1105 1105 Roel Lugo MD, FACC /INF
[2021-06-15 14:20] LABS: HEMOGLOBIN 8.3 gm/dL (14.0-18.0)
[2021-06-15 15:16] VITALS: BP 126/70
--- NOTE | 2021-06-15 15:16 | NUR ---
INITIAL ASSESSMENT: Received consult. SW reviewed chart and spoke with nursing and attending physician. Pt was admitted from home due to shortness of air. Pt with hx of COVID. Pt has received the [employer] COVID vaccination. GI consulted due to anemia. Pt to have an EGD tomorrow. Per chart pt is alert/orientated to self and place. SW left voice message for pt's dtr, Analisa. Pt lives at home with Analisa and is normally independent. Pt has a walker to use if needed. Pt's PCP id Dr. Radha Tee. PT/OT/ST have all evaluated pt. Pt would benefit from HH services upon discharge. Awaiting call back from pt's dtr. [facility] is following to assist as needed with discharge planning.
--- NOTE | 2021-06-15 16:01 | NUR ---
ASSUMED PATIENT CARE AT 0700. A/O 2. DENIES PAIN. UP WITH WALKER. NO SOB NOTED. WILL HAVE EGD TOMORROW. SLOWLY TOWARDS POC GOALS.
[2021-06-15 19:40] VITALS: BP 127/77
[2021-06-15] MEDS ORDERED: HYDREA 500 MG500 M1 PO (22:10)
[2021-06-15 23:45] VITALS: BP 131/67
[2021-06-16] VITALS (9 sets, daily range): BP systolic 110–139; BP diastolic 53–87
--- NOTE | 2021-06-16 02:43 | NUR ---
PT ALERT AND ORIENTED X2 . MILDLY CONFUSED AND FORGETFUL. VSS AFEBRILE. SAT B9%-100% ON RA. HR BEGAN TO INCREASE AROUND 0100 AM. RT 130 T0 150. EKG DONE= AFIB 135 . NOTIFIED TAKER DOWN. LOPRESSOER 2.5 MG IV GIVEN. HR NOW DOWN TO 90-105. ERNST HAS SMALL AMT BLOOD TINGED URINE NOTED IN CATHETER. PT NPO AFTER MG FOR EGD. BED DOWN. CALL LIGHT IN REACH. BED ALARM IS ON.
[2021-06-16 06:41] LABS: HEMATOCRIT 22.4 % (42.0-52.0); HEMOGLOBIN 7.6 gm/dL (14.0-18.0); MCH 32.4 pg (26.0-34.0); MCHC 33.8 g/dL (28.0-37.0); MCV 95.9 fL (80.0-100.0); PLATELET COUNT 417 thou/uL (150-400); RBC 2.34 mil/uL (4.50-6.00); RDW 32.3 % (10.5-14.5); WBC 7.9 thou/uL (4.0-11.0)
[2021-06-16 07:02] LABS: CALCIUM 8.5 mg/dL (8.5-10.1); CREATININE 0.9 mg/dL (0.7-1.3); PHOSPHORUS 4.1 mg/dL (2.5-4.9); POTASSIUM 3.9 mmol/L (3.5-5.1); TOTAL BILIRUBIN 0.6 mg/dL (0.2-1.0); TOTAL PROTEIN 5.8 g/dL (6.4-8.2)
--- NOTE | 2021-06-16 08:26 | NUR ---
NO FURTHER UNCONTROLLED AFIB LAST NIGHT AFTER LOPRESSOR. PT STILL NPO FOR EGD.
--- NOTE | 2021-06-16 09:07 | NUR ---
WOUND CONSULT; THIS MARIBEL-RECTUM AREA IS INVOLVED LIKEY RELATED TO A PERIOD OF INCONTINENCE. THERE IS ONE SMALL AREA REMAINING OPEN 0.5 X 0.5 X 0.1 NO INFECTION. LIKEY THIS WILL RESOLVE QUICKLY. -Q2H TURNING. -LOW AIR LOSS BED PUMP. -ZGUARD,BID -FLOAT HEELS. DISCUSSED WITH MILLICENT
--- NOTE | 2021-06-16 09:10 | NUR ---
Notification of pt with left buttock wound-wound care has been consulted. Admit with anemia and pending EGD today. Hx COVID, no wt loss since last admit in March. Prior to npo status for procedure, pt ate >75% of meals. Presents low nutrition risk at this time
[2021-06-16 09:30] LABS: ABSOLUTE NEUTROPHILS 6.4 thou/uL (1.4-8.2)
[2021-06-16 09:32] LABS: ANISOCYTOSIS 3+; POLYCHROMASIA 1+
[2021-06-16 09:33] LABS: LARGE PLATELETS SEVERAL; SCHISTOCYTES FEW
--- NOTE | 2021-06-16 11:19 | NUR ---
[facility] reviewed chart and spoke with nursing and attending physician. Pt to have EGD today. Pt is on IV abx. Recommendation made for pt to have HH services at time of discharge. [facility]ATRIZ spoke with pt's dtr, Analisa, via phone. Introduced role of [facility]. Analisa is agreeable with HH referral. BEATRIZ provided options for HH agencies. Analisa states that her [facility], who recently , [facility] and [facility] would like to use [facility]. BEATRIZ confirmed pt's home address. [facility]Z faxed HH referral to [facility] and notified HH liaison. Possible weekend discharge. Final discharge ppwk will need to be faxed when available. Pt's family will be able to provide transportation home. [facility] is following to assist as needed with discharge planning. [email or web address]--
--- NOTE | 2021-06-16 17:57 | NUR ---
RN ASSUMED PT'S CARE AT 0700AM, PT IS A&OX2 ( PERSON AND PLACE), PT IS CONFUSED AT TIME, BUT PT CAN FOLLOW COMMANDS, PT IS ROOM AIR, PT'S SOB AND PT'S HR HAVE IMPROVED, PT'S VS ARE STABLE, PT IS TOLERATED EGD TODAY,EGD EXAM ONLY FINDS HIATAL HERNIA, PT DOES NOT HAVE S/S OF GI BLEEDING , NO PAIN BY THIS TIME, PT IS TOLERATED REGULAR DIET AT DINNEDR TIME, PT'S DAUGTER STAYS AT PT'S BEDISDE .
--- NOTE | 2021-06-16 23:35 | NUR ---
PT ALERT AND ORIENED TO SELF. MILD CONFUSION NOTED. VSS AFEBRILE. FINE CRACKLES NOTED. UNLABORED ON RA. DENIED PAIN. ZGARD APPLIED TO LEFT BUTTOCK DECUB. ENCOURAGED PT TO TURN Q2 . WILL CONTINUE TO MONITOR PT FOR CHANGES.
[2021-06-17 04:51] VITALS: BP 133/71
--- NOTE | 2021-06-17 05:22 | NUR ---
PT PROGRESSING TOWARDS D/C GOALS. VSS AFEBRILE. SATS WNL ON RA. AFIB WITH BBB RATE CONTROLLED TONIGHT. HE HAS BEENRESTING QUIETLY TONIGHT. NO S/S DISTRESS.
[2021-06-17 06:48] LABS: HEMOGLOBIN 7.5 gm/dL (14.0-18.0); MCH 31.6 pg (26.0-34.0); MCHC 32.6 g/dL (28.0-37.0); MCV 96.7 fL (80.0-100.0); PLATELET COUNT 458 thou/uL (150-400); RBC 2.38 mil/uL (4.50-6.00); RDW 32.6 % (10.5-14.5); WBC 7.7 thou/uL (4.0-11.0)
[2021-06-17 06:59] LABS: CALCIUM 8.2 mg/dL (8.5-10.1); POTASSIUM 3.9 mmol/L (3.5-5.1)
[2021-06-17 07:35] VITALS: BP 127/56
[2021-06-17 11:41] LABS: OBSERVED RETIC COUNT 0.56 % (0.6-2.6)
[2021-06-17 11:59] LABS: % SATURATION 54 % (20-39); IRON 52 ug/dL (65-175); TIBC 96 ug/dL (250-450)
[2021-06-17 12:21] LABS: ABSOLUTE NEUTROPHILS 6.2 thou/uL (1.4-8.2)
[2021-06-17 12:22] LABS: ANISOCYTOSIS 3+; OVALOCYTES 1+; POIKILOCYTOSIS 1+
[2021-06-17 12:42] LABS: FOLIC ACID 51.7 ng/mL (8.6-58.9)
--- NOTE | 2021-06-17 14:56 | EKG ---
[address] [address] ELECTROCARDIOGRAM REPORT Name: SHAHNAZ FERRARO Room #: 359-P ADM IN M.R.#: [id number] Admission: 06/14/21 Attend Phys: Mejia Sanchez MD Discharge: Date of : 34 Report #: [id number] [facility] Test Date: 2021-06-16 Test Time: 01:12:10 Pat Name: SHAHNAZ FERRARO Department: Room: 359 P Gender: M Taker Off Braker Machine: SCOTT RICKS : 1930 Requested By: Mejia Sanchez Order Number: [id number] MD: Renan Sutton Measurements Intervals [place] Rate: 136 P: IA: QRS: 19 QRSD: 132 T: 160 QT: 359 QTc: 541 Interpretive Statements Atrial fibrillation Left bundle branch block Compared to ECG 06/14/2021 13:40:33 No significant changes Electronically Signed On 06-17-2021 14:56:01 CDT by Renan Sutton [email or web address] <ELECTRONICALLY SIGNED> By: Renan Sutton MD, [facility] 06/17/21 1456 0112 0112 Renan Sutton MD, FACC /EPI
[2021-06-17 15:02] VITALS: BP 124/63
[2021-06-17 19:20] VITALS: BP 117/54
--- NOTE | 2021-06-17 19:47 | NUR ---
PT ALERT AND ORIENTED TO SELF AND PLACE. PT CONFUSED BUT PLEASANT. PT ON RA. PT DENIES PAIN. EDEMA BILATERAL LEGS 1+. FAMILY AT BEDSIDE TODAY. PT DAUGHTER BROUGHT ANOTHER BOTTLE OF HOME MEDS, ANAGRELIDE, IN PT IV BIN. PT DENIES NEEDS AT THIS TIME. WILL CONTINUE TO MONITOR.
--- NOTE | 2021-06-17 23:47 | NUR ---
AT APPROXIMATELY 2200 RESPONDED TO PTS BED EXIT ALARM. PT FOUND TO HAVE REMOVED HIS ERNST CATHETER, BALLOON UP. NOTED SCANT AMOUNT OF REDDISH DRAINAGE ON BED SHEET WHERE HE WAS SITTING. PT STATED "I'M DONE WITH IT, IT BOTHERED ME SO I PULLED IT OUT." PT HAD NOT MADE A PREVIOUS STATEMENTS REGARDING THE ERNST CATHETER, IRRITATION OR JUST WANTING IT REMOVED. WILL MONITOR FOR UOP THROUGHOUT THE NIGHT.
[2021-06-18 04:07] VITALS: BP 137/77
[2021-06-18 06:28] LABS: HEMATOCRIT 22.7 % (42.0-52.0); HEMOGLOBIN 7.6 gm/dL (14.0-18.0); MCHC 33.3 g/dL (28.0-37.0); MCV 96.2 fL (80.0-100.0); PLATELET COUNT 508 thou/uL (150-400); RBC 2.36 mil/uL (4.50-6.00); WBC 9.2 thou/uL (4.0-11.0)
[2021-06-18 07:23] VITALS: BP 133/69
--- NOTE | 2021-06-18 09:23 | HC ---
[facility] [address] [place] [address] CONSULTATION Name: SHAHNAZ FERRARO Room #: 359-P ADM IN M.R.#: [id number] Admission: 06/14/21 Attend Phys: Mejia Sanchez MD Discharge: Date of : 34 Report #: [id number] THIS REPORT FOR: cc: Radha Tee MD, Keninde A. MD [facility] MD ~ cc: Mejia Sanchez MD, Luis M Sheets MD, Jorge Ray MD, Farida Hudson NP REASON FOR CONSULTATION: History of essential thrombocythemia with anemia. HISTORY OF PRESENT ILLNESS: I was able to access chart from Dr. Luis M Sheets. The patient was diagnosed with JAK2 positive essential thrombocythemia several years ago I think perhaps in 2017 or 2018. He had been on Jakafi between 05/28/2018 and 08/15/2018. He had a rising platelet count and hemoglobin is going down. He was begun on Agrylin for a while. Recently in 10/2018, had been switched to Hydrea. More recently, he has actually been on both medications with Agrylin 1 mg b.i.d. and Hydrea 500 daily, except for 1000 mg on Saturday and . They report in his notes that his platelets have been adequately control, though he has had trouble with anemia, though with evaluation it has not been delineated. The patient cannot provide any additional history. At this time, patient denies fevers, chills, nausea, vomiting. Does have fatigue. Does have some minimal abdominal discomfort. No chills or sweats. No nausea or vomiting. PAST MEDICAL HISTORY: Notable for the history of essential thrombocythemia, history of GERD with a recent EGD showing a hiatal hernia, but no bleeding diathesis. Does have a history of Rocio-Pa tear in the past, also history of colonoscopy 06/2019, history of AFib, history of gout, history heart failure. MEDICATIONS: At this time currently include metoprolol 25 daily, hydroxyurea 500 daily, azithromycin daily, ceftriaxone daily, furosemide 40 daily, allopurinol 300 daily, finasteride 5 mg daily, pantoprazole 40 daily, anagrelide currently having 0.5 t.i.d. We will check with Dr. Sheets to see if this is the dose or whether he should be on 1 mg b.i.d., Tylenol and flu vaccine. PHYSICAL EXAMINATION: GENERAL: The patient appears his stated age. He is an elegant gentleman in a hospital bed. VITAL SIGNS: Recent height 6 feet, 182.9 cm. Weight 207 pounds or 94.1 kilograms. Blood pressure is 127/56, O2 sat 96%, respirations 16, pulse 84, temperature 97.9. HEENT: Face is symmetrical. Poor dentition, missing a number of teeth, but no definite gum disease. [address] [address] CONSULTATION Name: SHAHNAZ FERRARO Room #: 359-P ADM IN M.R.#: [id number] Admission: 06/14/21 Attend Phys: Mejia Sanchez MD Discharge: Date of : 34 Report #: [id number] LUNGS: Clear anteriorly. HEART: Regular rate. LYMPHATIC: No enlarged lymph nodes in the supraclavicular, cervical, axillary region. ABDOMEN: Slightly obese, nontender, no masses. EXTREMITIES: With some edema, right more than left. LABORATORY DATA: Shows a hemoglobin of 7.5, platelets of 458. Liver functions normal. ASSESSMENT AND PLAN: 1. Essential thrombocythemia, has had reasonably good control with Agrylin 1 mg twice daily and Hydrea 500 every day, except for 1000 on Saturday and . Would suggest continuing such, we will check with Dr. Sheets about the dose of the Agrylin. 2. Anemia, had an EGD recently with unremarkable except for hiatal hernia with no obvious stigmata of bleeding. Colonoscopy in the past. We will check iron, B12, folate, erythropoietin and reticulocyte count to assess red cell production whether any nutritional deficiencies are limiting his anemia. 3. Gastroesophageal reflux disease per others. 4. Atrial fibrillation, rate controlled, per others. 5. Gout per others. 6. Decreased ejection fraction. 7. Weakness. Defer to others. <ELECTRONICALLY SIGNED> By: Gaurav Winston MD 06/18/2123 0949 01 Gaurav Winston MD /nt
[2021-06-18 10:51] LABS: ABSOLUTE NEUTROPHILS 7.2 thou/uL (1.4-8.2); METAMYELOCYTES 1 %
[2021-06-18 10:52] LABS: ANISOCYTOSIS 3+; LARGE PLATELETS FEW
[2021-06-18 10:53] LABS: HYPOCHROMASIA 1+; MACROCYTES 1+; MICROCYTES 1+; OVALOCYTES 1+
[2021-06-18 10:54] LABS: POIKILOCYTOSIS 1+
[2021-06-18 11:18] VITALS: BP 120/68
[2021-06-18] MEDS ORDERED: LASIX 40 MG TAB40 M2 PO (16:20)
[2021-06-18 16:25] VITALS: BP 124/65
[2021-06-18] MEDS ORDERED: TOPROL XL25 MG PO (16:28)
--- NOTE | 2021-06-18 19:35 | NUR ---
RN ASSUMED PT'S CARE AT 0700-1800PM, PT IS A&OX2 ( PERSON AND PLACE), PT IS CONFUSED AT TIME, PT'S VS ARE STABLE, PT DENIES PAIN AND SOB, RN RECEIVED TO DC PT TO HOME WITH HOME HEALTH, PT'S DAUGHTER STAYS WITH PT, PT'S DUAGTER UNDERSTANDED DC WELL, PT WAS GOING HOME AT 1800PM.
== END 2021-06-18 18:09 | disposition home health service (06) | DRG 811 ==
LOC: ER 12:46 → 3W 15:37 → EROBS 15:37 → 3W 19:51
PROVIDERS: Emergency Medicine; Internal Medicine; Internal Medicine Hematology & Oncology; ADMIT Internal Medicine; ATTEND Internal Medicine
PROC: 30233N1 Transfusion of Nonautologous Red Blood Cells into Peripheral Vein, Percutaneous Approach (ICD-10-PCS; 2021-06-14)
PROC: 0DJ08ZZ Inspection of Upper Intestinal Tract, Via Natural or Artificial Opening Endoscopic (ICD-10-PCS; principal; 2021-06-16)
PROC: 3E02340 Introduction of Influenza Vaccine into Muscle, Percutaneous Approach (ICD-10-PCS; 2021-06-17)
DX: D64.9 Anemia, unspecified (principal); I50.21 Acute systolic (congestive) heart failure; R60.0 Localized edema; R53.81 Other malaise; I44.7 Left bundle-branch block, unspecified; K44.9 Diaphragmatic hernia without obstruction or gangrene; K21.9 Gastro-esophageal reflux disease without esophagitis; D47.3 Essential (hemorrhagic) thrombocythemia; D75.839 Thrombocytosis, unspecified; G43.909 Migraine, unspecified, not intractable, without status migrainosus; I48.0 Paroxysmal atrial fibrillation; M10.9 Gout, unspecified; I08.3 Combined rheumatic disorders of mitral, aortic and tricuspid valves; T50.905A Adverse effect of unspecified drugs, medicaments and biological substances, initial encounter; Z20.822 Contact with and (suspected) exposure to COVID-19; Z28.21 Immunization not carried out because of patient refusal; Z86.16 Personal history of COVID-19; Z87.442 Personal history of urinary calculi; Z79.899 Other long term (current) drug therapy; Z79.82 Long term (current) use of aspirin; Y92.89 Other specified places as the place of occurrence of the external cause; Z87.01 Personal history of pneumonia (recurrent); Z23 Encounter for immunization
CPT/HCPCS: 10080; 10879; 62110; 62900; 70005